=== PATIENT | male | born 1945 | race Caucasian/White ===

== ENCOUNTER 2017-04-03 14:05 | Emergency (ER) | payer MEDICARE, BC ==
[2017-04-03] MEDS ORDERED: Acetaminophen 500 MG Tab PO ONE (14:30)
[2017-04-03] MEDS ORDERED: Sodium Chloride 0.9% 1,000 ML IV ONE (14:30)
--- NOTE | 2017-04-03 14:36 | EDM.PDOC ---
ED HPI GENERAL MEDICAL PROBLEM - General Chief Complaint: Fever Stated Complaint: Fever/Neutropenia Time Seen by Provider: 04/03/17 14:15 Source of Information: Reports: Patient History Limitations: Reports: No Limitations - History of Present Illness INITIAL COMMENTS - FREE TEXT/NARRATIVE: 71 YO WM presents to ER with complaints of fever and neutropenia. Pt reports he was seen yesterday by his oncologist and found to be neutropenic. Pt's chemo was held due to lab results. Pt woke this am with fever 101.5 and called cancer center who told him to com to ER for further evaluation and treatment. Pt with PMH of pancreatic cancer s/p Whipple procedure. Pt reports he had fever of unknown origin late 2015 and was found to have abscesses in liver requiring antibiotic therapy until January 2017. Pt denies cough, congestion, dysuria or frequency. Pt denies any abdominal pain but states he had 1 episode of vomiting this am. Onset: today Duration: Day(s): (1) Improves with: Reports: None Worsens with: Reports: None Associated Symptoms: Reports: no other symptoms, fever/chills, nausea/vomiting - Related Data Allergies Allergy/AdvReac Type Severity Reaction Status Date / Time No Known Allergies Allergy Verified 04/03/17 14:41 Home Meds: Home Meds Chondroitin/Glucosamine [Glucosamine-Chondroitin] 2 cap PO DAILY 07/13/16 [ History] Multivit-Min/FA/Lycopene/Lut [Centrum Silver Tablet] 1 tab PO DAILY 07/13/16 [ History] Omeprazole [Omeprazole] 20 mg PO DAILY 07/13/16 [History] Potassium Chloride [Klor-Con M20] 20 meq PO DAILY 07/13/16 [History] Xxvit B12 100 mg PO DAILY 07/13/16 [History] Aspirin [Low Dose Aspirin EC] 81 mg PO DAILY 04/03/17 [History] Cetirizine [ZyrTEC] 10 mg PO DAILY 04/03/17 [History] Fluticasone Propionate [Flonase] 2 spray NASBOTH DAILY 04/03/17 [History] Lactobacillus Acidophilus [Acidophilus Lactobacillus] 1 each PO DAILY 04/03/17 [ History] Lidocaine/Prilocaine [EMLA Crm] 1 applic TOP ASDIRECTED PRN 04/03/17 [History] Lipase/Protease/Amylase [Caitlin Banks 16,000 Units Caps] 1 each PO DAILY 04/03/17 [History] Polyethylene Glycol 3350 [MiraLAX] 17 gm PO DAILY PRN 04/03/17 [History] Zinc 50 mg PO DAILY 04/03/17 [History] oxyCODONE 5 mg PO Q4HR PRN 04/03/17 [History] Past Medical History Gastrointestinal History: Reports: Other (see below) Other Gastrointestinal History: pancreatic CA Musculoskeletal History: Reports: Fracture Oncologic (Cancer) History: Reports: Pancreatic - Past Surgical History Oncologic Surgical History: Reports: Other (see below) Other Oncologic Surgeries/Procedures: whipple procedure Sep 2015 Social & Family History - Tobacco Use Smoking Status *Q: Never Smoker Second Hand Smoke Exposure: No - Alcohol Use Days Per Week of Alcohol Use: 1 Number of Drinks Per Day: 1 Total Drinks Per Week: 1 - Recreational Drug Use Recreational Drug Use: No ED ROS GENERAL - Review of Systems Review Of Systems: See Below Constitutional: Reports: Fever, Chills, Malaise HEENT: Reports: No Symptoms Respiratory: Reports: No Symptoms Cardiovascular: Reports: No Symptoms Endocrine: Reports: No Symptoms GI/Abdominal: Reports: No Symptoms : Reports: No Symptoms Musculoskeletal: Reports: No Symptoms Skin: Reports: No Symptoms Neurological: Reports: No Symptoms Psychiatric: Reports: No Symptoms Hematologic/Lymphatic: Reports: No Symptoms Immunologic: Reports: No Symptoms ED EXAM, GENERAL - Physical Exam Exam: See Below Exam Limited By: No Limitations General Appearance: Alert, WD/WN, No Apparent Distress Ears: Normal External Exam, Normal Canal, Hearing Grossly Normal, Normal TMs Ear Exam: Bilateral Ear: Auricle Normal, Canal Normal, TM normal Nose: Normal Inspection, Normal Mucosa, No Blood Throat/Mouth: Normal Inspection, Normal Lips, Normal Teeth, Normal Gums, Normal Oropharynx, Normal Voice, No Airway Compromise Head: Atraumatic, Normocephalic Neck: Normal Inspection, Supple, Non-Tender, Full Range of Motion Respiratory/Chest: No Respiratory Distress, Lungs Clear, Normal Breath Sounds, No Accessory Muscle Use, Chest Non-Tender Cardiovascular: Normal Peripheral Pulses, Regular Rate, Rhythm, No Edema, No Gallop, No JVD, No Murmur, No Rub GI/Abdominal: Normal Bowel Sounds, Soft, Non-Tender, No Organomegaly, No Distention, No Abnormal Bruit, No Mass Back Exam: Normal Inspection, Full Range of Motion, NT Extremities: Normal Inspection, Normal Range of Motion, Non-Tender, Normal Capillary Refill, No Pedal Edema Neurological: Alert, Oriented, CN II-XII Intact, Normal Cognition, Normal Gait, Normal Reflexes, No Motor/Sensory Deficits Psychiatric: Normal Affect, Normal Mood Skin Exam: Warm, Dry, Intact, Normal Color, No Rash Lymphatic: No Adenopathy Course - Vital Signs Last Recorded V/S: Last Vital Signs Temp 38.6 C H 04/03/17 15:43 Pulse 88 04/03/17 15:26 Resp 18 04/03/17 15:26 BP 141/74 H 04/03/17 15:26 Pulse Ox 99 04/03/17 15:26 - Orders/Labs/Meds Orders: Active Orders 24 hr Category Date Time Status Chest 2V [CR] Stat Exams 04/03/17 14:30 Taken CULTURE BLOOD [BC] Stat Lab 04/03/17 14:40 Received CULTURE BLOOD [BC] Stat Lab 04/03/17 15:00 Received Piperacillin/Tazobactam [Zosyn] 4.5 gm Med 04/03/17 16:15 Active Sodium Chloride 0.9% [Normal Saline] 100 ml IV Q6H Blood Culture x2 Reflex Set [OM.PC] Stat Oth 04/03/17 14:30 Ordered Medication Orders Piperacillin Sod/Tazobactam (Sod 4.5 gm/ Sodium Chloride) 100 mls @ 200 mls/hr IV Q6H NICOLASA Labs: Laboratory Tests 04/03/17 04/03/17 04/03/17 Range/Units 14:40 14:40 15:20 WBC 2.0 L (5.0-10.0) 10^3/uL RBC 4.31 L (4.50-6.00) 10^6/uL Hgb 13.0 (13.0-17.0) g/dL Hct 38.8 L (40.0-52.0) % MCV 90.0 (82.0-92.0) fL MCH 30.1 (27.0-31.0) pg MCHC 33.5 (32.0-36.0) g/dL RDW 15.7 H (11.5-14.5) % Plt Count 167 (150-300) 10^3/uL MPV 7.3 L (7.4-10.4) fL Neut % (Auto) 62.3 (50.0-70.0) % Lymph % (Auto) 15.0 L (20.0-40.0) % [place] % (Auto) 21.4 H (2.0-8.0) % Eos % (Auto) 0.8 L (1.0-3.0) % Baso % (Auto) 0.5 (0.0-1.0) % Neut # (Auto) 1.3 L (2.5-7.0) 10^3/uL Lymph # (Auto) 0.3 L (1.0-4.0) 10^3/uL [place] # (Auto) 0.4 (0.1-0.8) 10^3/uL Eos # (Auto) 0.0 L (0.1-0.3) 10^3/uL Baso # (Auto) 0.0 (0.0-0.1) 10^3/uL Sodium 140 (136-145) mmol/L Potassium 3.6 (3.3-5.3) mmol/L Chloride 103 (98-115) mmol/L Carbon Dioxide 31.2 (21.0-32.0) mmol/L BUN 13 (6-25) mg/dL Creatinine 0.80 (0.51-1.17) mg/dL Est Cr Clr Drug Dosing TNP Estimated GFR (MDRD) > 60 mL/min Glucose 124 H (70-110) mg/dL Calcium 8.2 L (8.7-10.3) mg/dL Total Bilirubin 0.7 (0.2-1.0) mg/dL AST 69 H (15-37) U/L ALT 84 H (12-78) U/L Alkaline Phosphatase 260 H (46-116) IU/L Total Protein 6.1 L (6.4-8.2) g/dL Albumin 3.03 (3.00-4.80) g/dL Lipase 26 L (73-393) U/L Specimen Type Urinvoid Urine Color Yellow (YELLOW) Urine Appearance Clear (CLEAR) Urine pH 5.5 (5.0-9.0) Ur Specific [place] 1.020 (1.005-1.030) Urine Protein Negative (NEGATIVE) mg/dL Urine Glucose (UA) Negative (NEGATIVE) mg/dL Urine Ketones Negative (NEGATIVE) mg/dL Urine Occult Blood Negative (NEGATIVE) Urine Nitrite Negative (NEGATIVE) Urine Bilirubin Negative (NEGATIVE) Urine Urobilinogen 0.2 (0.2-1.0) E.U./dL Ur Leukocyte Esterase Negative (NEGATIVE) Urine RBC 0-5 /HPF Urine WBC 0-5 /HPF Ur Epithelial Cells Few /LPF Meds: Medications Generic Name Dose Route Start Last Admin Trade Name Freq PRN Reason Stop Dose Admin Piperacillin Sod/Tazobactam 100 mls @ 200 mls/hr 04/03/17 16:15 Sod 4.5 gm/ Sodium Chloride IV Q6H NICOLASA Discontinued Medications Generic Name Dose Route Start Last Admin Trade Name Freq PRN Reason Stop Dose Admin Acetaminophen 1,000 mg 04/03/17 14:30 04/03/17 15:07 Tylenol Extra Strength PO 04/03/17 14:31 1,000 mg ONETIME ONE Administration Sodium Chloride 1,000 mls @ 999 mls/hr 04/03/17 14:30 04/03/17 15:08 Normal Saline IV 04/03/17 15:30 999 mls/hr .BOLUS ONE Administration Departure - Departure Time of Disposition: 16:01 Disposition: Home, Self-Care 01 Condition: fair Clinical Impression: Leukopenia Qualifiers: Leukopenia type: lymphocytopenia Qualified Code(s): D72.810 - Lymphocytopenia Fever Qualifiers: Encounter type: initial encounter - Discharge Information Referrals: Mikayla Wray MD [Primary Care Provider] - Akshat oLmeli MD [Ordering Only Provider] - - My Orders Last 24 Hours: My Active Orders 04/03/17 14:30 Chest 2V [CR] Stat Blood Culture x2 Reflex Set [OM.PC] Stat 04/03/17 14:40 CULTURE BLOOD [BC] Stat 04/03/17 15:00 CULTURE BLOOD [BC] Stat 04/03/17 16:15 Piperacillin/Tazobactam [Zosyn] 4.5 gm Sodium Chloride 0.9% [Normal Saline] 100 ml IV Q6H - Assessment/Plan Last 24 Hours: My Active Orders 04/03/17 14:30 Chest 2V [CR] Stat Blood Culture x2 Reflex Set [OM.PC] Stat 04/03/17 14:40 CULTURE BLOOD [BC] Stat 04/03/17 15:00 CULTURE BLOOD [BC] Stat 04/03/17 16:15 Piperacillin/Tazobactam [Zosyn] 4.5 gm Sodium Chloride 0.9% [Normal Saline] 100 ml IV Q6H Assessment:: 1. Fever 2. leukopenia 3. pancreatic CA on chemotherapy 4. history of liver abscess Plan: 1. Discussed case with Dr Yani brower/onc who recommended zosyn 4.5g IV now and since pt is hemodynamically stable, pt will go to [facility] by private car transport and direct admission.
[2017-04-03 15:09] LABS: CHLORIDE,CL 103 mmol/L (98-115); SODIUM,NA 140 mmol/L (136-145)
[2017-04-03 15:29] VITALS: BP 141/74
[2017-04-03] MEDS ORDERED: Piperacillin/Tazobactam 4.5 GM in Sodium Chloride 0.9% 100 ML IV SCH (16:15)
[2017-04-03] MEDS ORDERED: Ibuprofen 600 MG Tab PO ONE (17:01)
== END 2017-04-03 17:40 | disposition home or self-care (01) ==
LOC: KA.ED 14:05
DX: D72.810 Lymphocytopenia (principal); Z79.899 Other long term (current) drug therapy; Z79.82 Long term (current) use of aspirin; Z98.890 Other specified postprocedural states
CPT/HCPCS: 36415; 71020; 80053; 81001; 83690; 85025; 87040; 87077; 87186; 96361; 96365; 99285; A9270; J2543; J7030; J7050; 99284